=== PATIENT | female | born 1955 | race Caucasian/White ===

== ENCOUNTER 2025-02-01 10:28 | Outpatient (AMB) | payer OTHER, SELFPAY ==
--- NOTE | 2025-02-01 10:30 | A.OFFVIS_ITS ---
Intake Visit Reasons: 1 yr PLMD Accompanied by: Spouse Allergies acetaminophen (From Percocet) Allergy (Unknown, Verified 02/01/25 10:35) Unknown aspirin (From Percodan) Allergy (Unknown, Verified 02/01/25 10:35) Unknown oxycodone (From Percodan) Allergy (Unknown, Verified 02/01/25 10:35) Unknown Medication List - Last Reconciled 02/01/25 by Leanna Orourke CNP bupropion HCl XL 150 mg PO DAILY cholecalciferol (vitamin D3) 50 mcg PO DAILY [id number] 100-62.5-25 mcg (Trelegy Ellipta) 1 ea inhalation DAILY gabapentin 300 - 600 mg PO BEDTIME omeprazole 40 mg PO DAILY HPI Comments Details: 69-year-old woman with asthma and PLMD. She was doing okay. She tried decreasing gabapentin to 300mg, but dose was not sufficient. She went back to 600mg and medication was working well. It took her about 1-3 hours to fall asleep, but she was able to sleep through the night. She was getting about 7 hours of sleep/night. She was still under some stress related to her almost 14-year-old dog (Joaquim) who had some health issues. [facility] Medical History (Updated 02/01/25 @ 10:36 by Leanna Orourke CNP) Sciatica Rotator cuff syndrome of right shoulder Diverticulosis Asthma Review of Systems Const Denies chills, Denies daytime sleepiness, Denies difficulty sleeping, Denies fatigue, Denies fever(s), Denies frequent falls, Denies headache(s), Denies increased appetite, Denies poor appetite, Denies snoring, Denies weakness, Denies weight gain and Denies weight loss Eyes Denies loss of vision ENT Denies vertigo, Denies dizziness and Denies headache(s) Card Denies chest pain at rest, Denies chest pain with activity, Denies syncope, Denies leg edema and Denies palpitations Resp Denies snoring GI Denies constipation, Denies heartburn, Denies diarrhea and Denies nausea Denies urinary frequency, Denies urinary incontinence and Denies urinary urgency Musc Denies abnormal gait, Denies numbness and Denies tingling Skin/Breast Denies dry skin and Denies rash Neuro Denies abnormal gait, Denies vertigo, Denies dizziness, Denies syncope, Denies frequent falls, Denies headache(s), Denies lack of coordination, Denies loss of vision, Denies memory loss, Denies numbness, Reports restless legs, Denies seizure-like activity, Denies tingling, Denies paresthesias, Denies tremor(s) and Denies weakness Psych Reports anxiety, Denies depression, Denies auditory hallucinations, Denies memory loss, Denies visual hallucinations and Denies suicidal ideation Endo Denies fatigue and Denies palpitations Physical Exam Const Other: General Appearance:? normal, in no acute distress. Skin:? no rashes, no significant birthmarks. Heart:? S1, S2 normal, no murmurs. Lungs:? clear anteriorly and posteriorly. Extremities:? no edema. Psych:? alert, oriented, cognitive function intact, cooperative with exam. Neuro Other: Mental Status:?Normal attention, orientation, memory and affect.? Cranial Nerves:?Pupils are equal, round and reactive to light. External occular muscles are intact. Visual perez are full. Face is symmetrical. Facial sensations are normal. Tongue is midline. Palate elevates symmetrically. Shoulder shrugging is normal. Hearing to bedside conversation is normal. Coordination:?No ataxia,?no titubation.? Gait Exam: Within normal limits. Extrapyramidal System:?No tremor, rigidity with normal facial expressions.? Pronator Drift:?Not present.? Involuntary Movements:?No tremors seen.? Speech:?Normal.? Assessment & Plan Assessment & Plan (1) Periodic limb movement disorder: Code(s): G47.61 - Periodic limb movement disorder Category: Medical Plan: Continue gabapentin 300mg 1-2 capsules at bedtime. Medications: Changed From gabapentin 300 - 600 mg PO BEDTIME To gabapentin 300 - 600 mg (1 - 2 x 300 mg) PO BEDTIME 180 caps 1RF 90 days Coding Level of Care Code Est Pt Level 3 (09195) Diagnoses Periodic limb movement disorder G47.61
== END 2025-02-01 10:52 | disposition home or self-care (01) ==
LOC: HO.HSM 10:29
PROVIDERS: PCP Family Medicine; Referring Provider Family Medicine; Visit Provider Registered Nurse
DX: G47.61 Periodic limb movement disorder (principal)
CPT/HCPCS: 99213